=== PATIENT | male | born 1935 | race Caucasian/White ===

== ENCOUNTER 2017-10-09 11:14 | Emergency (ER) | payer OTHER ==
[2017-10-09] MEDS ORDERED: NS 1,000 ML IV ONE (11:45)
[2017-10-09] MEDS ORDERED: PANTOPRAZOLE SODIUM 40 MG VIAL IVP ONE (11:45)
--- NOTE | 2017-10-09 11:46 | EDPHY ---
H & P Stated Complaint: blood in stool post colonscopy September 28 Time Seen by Provider: 10/09/17 11:17 HPI/ROS: 81 yo M with hx of htn, afib, hl, lbbb, diverticulosis presents with complaint of multiple stools with up to a cup of blood. Pt is on Eliquis, last dose yesterday. Review of systems General no fever no chills no weakness HEENT no eye pain no eye discharge. No eye redness, no sore throat Respiratory no cough, no shortness of breath Cardiac no chest pain, no peripheral edema GI no abdominal pain, no diarrhea, no constipation, no nausea, no vomiting Positive blood in stool no flank pain, no hematuria, no dysuria Musculoskeletal no myalgias, no joint pain Heme no easy bruising, no easy bleeding Endo no polyuria, no polydipsia Skin no rashes, no pruritus Neuro no syncope, positive dizziness, no headaches Psych is no suicidal ideation, no homicidal ideation Source: Patient Exam Limitations: No limitations - Personal History Current Tetanus Diphtheria and Acellular Pertussis (TDAP): Yes - Medical/Surgical History Hx Asthma: No Hx Chronic Respiratory Disease: No Hx Diabetes: No Hx Cardiac Disease: Yes Hx Cirrhosis: No Hx Alcoholism: No Hx HIV/AIDS: No Hx Splenectomy or Spleen Trauma: No Other PMH: pacemaker, stents, melanoma - Family History Significant Family History: No pertinent family hx - Social History Smoking Status: Unknown if ever smoked Alcohol Use: None Drug Use: None - Physical Exam Exam: 81-year-old male alert and oriented no acute distress nontoxic appearance, afebrile HEENT atraumatic normocephalic, extraocular muscles intact, anicteric Oropharynx negative for erythema negative exudate, tolerating her own secretions Neck supple no meningismus Lungs clear to auscultation bilaterally Heart regular rate and rhythm without murmur rub or gallop Abdomen nondistended normoactive bowel sounds soft nontender Rectal exam positive for hematochezia, heme-positive No evidence of hemorrhoids Back no CVA tenderness, no step-offs, no spinal tenderness Extremities no cyanosis clubbing or edema Neuro alert and oriented, no focal deficits Constitutional: Initial Vital Signs Temperature (C) 36.2 C 10/09/17 11:19 Heart Rate 90 10/09/17 11:19 Respiratory Rate 16 10/09/17 11:19 Blood Pressure 112/78 10/09/17 11:19 O2 Sat (%) 93 10/09/17 11:19 O2 Delivery Mode Room Air Allergies/Adverse Reactions: No Known Allergies Allergy (Unverified 10/09/17 11:22) Home Medications: Medication Instructions Recorded Atorvastatin Calcium 10/09/17 Benazepril HCl 10/09/17 Doxazosin Mesylate 10/09/17 Eliquis 10/09/17 Lasix 10/09/17 Metoprolol Succinate 10/09/17 Spironolactone 10/09/17 Medical Decision Making ED Course/Re-evaluation: Patient seen and evaluated for bleeding with bowel movements over the last 3 days. IV established 1 L normal saline ordered Protonix 80 mg IV piggyback ordered CBC hemoglobin 11 CMP within normal limits Lactate 2.3 Impression Lower GI bleed likely diverticulosis However patient with history of polyp removal on September 28, could be bleeding bx site Plan Admit to [facility]. Accepted by the hospitalist , Dr Mcallister. Differential Diagnosis: Differential diagnosis considered but not limited to: Rectal bleeding, bleeding hemorrhoid, diverticulosis, polyp biopsy site bleeding , upper GI bleeding - Data Points Laboratory Results: 10/09/17 10/09/17 10/09/17 12:03 12:02 12:01 POC Sodium 139 mEq/L mEq/L (135-145) POC Potassium 4.3 mEq/L mEq/L (3.3-5.0) POC Chloride 102.0 mEq/L mEq/L (97-110) POC Total CO2 23 mEq/L mEq/L (22-31) POC BUN 21 mg/dL mg/dL (7-23) POC Creatinine 1.2 mg/dL mg/dL (0.7-1.3) POC Glucose 125 mg/dL H mg/dL (70-100) POC Lactic Acid Sav 2.3 mmol/L H mmol/L (0.7-2.1) POC Calcium 9.2 mg/dL mg/dL (8.5-10.4) POC Total Bilirubin 1.1 mg/dL mg/dL (0.1-1.4) POC AST 22 IU/L IU/L (17-59) POC ALT 16 IU/L L IU/L (21-72) POC Alk Phosphatase 70 IU/L IU/L (38-126) POC Troponin I 0.00 ng/mL ng/mL (0.00-0.08) POC Total Protein 6.8 g/dL g/dL (6.3-8.2) POC Albumin 3.6 g/dL g/dL (3.5-5.0) Medications Given: Discontinued Medications Sodium Chloride (Ns) 1,000 mls @ 0 mls/hr IV ONCE ONE PRN Reason: Wide Open Stop: 10/09/17 11:46 Last Admin: 10/09/17 12:08 Dose: 1,000 mls Pantoprazole Sodium (Protonix) 80 mg IVP EDNOW ONE Stop: 10/09/17 11:46 Last Admin: 10/09/17 12:25 Dose: 80 mg Point of Care Test Results: CBC CBC Collection Date 10/09/17 CBC Collection Time 11:57 WBC 8.4 RBC 3.84 HGB 11.9 HCT 36.1 PLT 246 Neut # 6.4 Neut 76.1 LYMPH # 1.4 LYMPH 16.8 Other WBC # 0.6 Other WBC 7.1 MCV 94.0 Chemistry 10/09/17 10/09/17 12:02 12:01 POC Sodium 139 mEq/L mEq/L (135-145) POC Potassium 4.3 mEq/L mEq/L (3.3-5.0) POC Chloride 102.0 mEq/L mEq/L (97-110) POC Total CO2 23 mEq/L mEq/L (22-31) POC BUN 21 mg/dL mg/dL (7-23) POC Creatinine 1.2 mg/dL mg/dL (0.7-1.3) POC Glucose 125 mg/dL H mg/dL (70-100) POC Calcium 9.2 mg/dL mg/dL (8.5-10.4) POC Total Bilirubin 1.1 mg/dL mg/dL (0.1-1.4) POC AST 22 IU/L IU/L (17-59) POC ALT 16 IU/L L IU/L (21-72) POC Alk Phosphatase 70 IU/L IU/L (38-126) POC Troponin I 0.00 ng/mL ng/mL (0.00-0.08) POC Total Protein 6.8 g/dL g/dL (6.3-8.2) POC Albumin 3.6 g/dL g/dL (3.5-5.0) Blood Gas/Lactic Acid-Venous 10/09/17 12:03 POC Lactic Acid Sav 2.3 mmol/L H mmol/L (0.7-2.1) Occult Blood Occult Blood Collection Date 10/09/17 Occult Blood Collection Time 11:42 Occult Blood Result Positive/Positive Departure - Departure Disposition: [facility] Clinical Impression: Lower gastrointestinal bleeding Condition: Good Referrals: More Whitney MD [Primary Care Provider] - As per Instructions
--- NOTE | 2017-10-09 12:15 | CPEKG ---
Heart Rate: 80 RR Interval: 750 QRSD Interval: 128 QT Interval: 432 QTC Interval: 499 QRS [place]: -18 T Wave [place]: 64 EKG Severity - ABNORMAL ECG - EKG Impression: ATRIAL FIBRILLATION EKG Impression: LEFT BUNDLE BRANCH BLOCK Electronically Signed By: Matthias Persaud 10-Oct-2017 11:05:05
[2017-10-09 12:51] VITALS: BP 102/61
[2017-10-09 13:35] LABS: INR 1.28 (0.83-1.16); PROTIME(PATIENT) 16.2 SEC (12.0-15.0)
== END 2017-10-09 13:21 | disposition short-term general hospital (02) ==
LOC: CED 11:14
DX: K92.2 Gastrointestinal hemorrhage, unspecified (principal); Z85.820 Personal history of malignant melanoma of skin; Z95.0 Presence of cardiac pacemaker; Z95.5 Presence of coronary angioplasty implant and graft
CPT/HCPCS: 80053-PO; 83605-PO; 84484-PO; 96374